=== PATIENT | female | born 1980 | race American Indian/Alaskan Native ===

== ENCOUNTER 2019-11-19 15:40 | Emergency (ER) | payer SELFPAY ==
[~2019-11-19] VITALS: Ht 165.1 cm; Wt 82.7 kg
[2019-11-19 15:45] VITALS: BP 124/82; TEMP 98
[2019-11-19] MEDS ORDERED: NORCO 325 MG-51 TAB PO ×3 (18:14→19:02)
[2019-11-19] MEDS ORDERED: CRUTCHES MC ×3 (18:14→19:02)
[2019-11-19 18:30] VITALS: PULSE 87
== END 2019-11-19 18:30 | disposition home or self-care (01) ==
LOC: COL.ER 15:40
DX: S93.402A Sprain of unspecified ligament of left ankle, initial encounter (principal); W18.42XA Slipping, tripping and stumbling without falling due to stepping into hole or opening, initial encounter; X50.0XXA Overexertion from strenuous movement or load, initial encounter; Y92.242 Post office as the place of occurrence of the external cause
CPT/HCPCS: Q4045